=== PATIENT | female | born 1960 | race Caucasian/White ===

== ENCOUNTER → 2017-10-10 | Outpatient (CLI) | payer OTHER ==
[~2017-10-10] MED LIST: OMNIPAQUE 350 MG/ML, 150 ML BOTTLE ONE
== END | disposition home or self-care (01) ==
LOC: CFH 12:17
PROVIDERS: ATTEND Physician Assistant
DX: R31.29 Other microscopic hematuria (principal); Z87.891 Personal history of nicotine dependence
CPT/HCPCS: 74178; Q9967